=== PATIENT | male | born 2005 | race Caucasian/White ===

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

== ENCOUNTER → 2023-02-23 | Outpatient (CLI) | payer BC, MEDICAID, SELFPAY ==
[2023-02-23 18:31] LABS: Absolute Lymphocyte Count 2.47 X10^3/uL (0.83-4.51); Absolute Neutrophil Count 3.3 X10^3/uL (2.0-7.7); Basophil# 0.07 X10^3/uL; Eosinophil# 0.34 X10^3/uL; Hematocrit 47.6 % (40-54); Hemoglobin 15.5 g/dL (13.0-16.5); Lymphocyte # 2.47 X10^3/ul (0.83-4.51); Lymphocyte % 36.1 % (19-41); Mean Corp Hgb Conc 32.6 g/dL (32-36); Mean Corpuscular Hgb 29.4 pg (27.0-32.0); Mean Corpuscular Volume 90.2 fL (80-94); Mean Platelet Vol. 10.5 fl (6.2-12.0); Monocyte# 0.68 X10^3/uL; Monocyte% 9.9 % (0-10); NRBC Flagged by Analyzer 0 % (0-5); Neutrophil # 3.27 X10^3/uL (2.7-7.7); Neutrophil % 47.9 % (47-70); POSITIVE COUNT YES; RBC Distribution Width CV 12.8 % (11.6-14.6); RBC Distribution Width SD 41.8 fl (35.1-43.9); Red Blood Count 5.28 M/mm3 (4.6-6.2); White Blood Count 6.8 K/mm3 (4.4-11.0)
[2023-02-23 18:50] LABS: ALB/GLOB Ratio 1.3 RATIO (0.9-2.4); AST(SGOT) 14 U/L (15-37); Alanine Aminotransfer ALT/SGPT 23 U/L (16-61); Albumin, Serum 4.4 g/dL (3.2-5.0); Alkaline Phosphatase 110 U/L (45-117); Anion Gap 7 (5-15); BUN 9 mg/dL (7-18); BUN/Creat Ratio 10.5 RATIO (10-20); Calcium,Total 9.4 mg/dL (8.5-10.1); Chloride 107 mmol/L (98-107); Creatinine, Serum 0.86 mg/dL (0.70-1.30); EST Glomerular Filtration Rate 122 mL/min (>60); Est Glom Filt Rate - Afr Amer 147 mL/min (>60); Free T3 3.5 pg/mL (2.18-3.98); Globulin 3.3 g/dL (2.2-4.2); Glucose 80 mg/dL (74-106); Potassium 4.2 mmol/L (3.5-5.1); Protein, Total 7.7 g/dL (6.4-8.2); Sodium Level 142 mmol/L (136-145); T4 Free Direct 0.85 ng/dL (0.76-1.46); Thyroid Stim Hormone (TSH) 3.73 uIU/mL (0.358-3.74)
[2023-02-23 18:58] LABS: Differential Indicated SCAN CRITERIA MET
[2023-02-23 19:01] LABS: Anisocytosis RARE; Macrocytosis RARE; Platelet Estimate ADEQUATE (ADEQ)
[2023-02-25 09:46] LABS: Vitamin D,25 Hydroxy 23.9 ng/mL
== END | disposition home or self-care (01) ==
LOC: LABSPEC 18:18
PROVIDERS: Visit Provider Nurse Practitioner Family
DX: E03.9 Hypothyroidism, unspecified (principal); F41.9 Anxiety disorder, unspecified; R53.82 Chronic fatigue, unspecified; R06.02 Shortness of breath; G25.81 Restless legs syndrome; B60.00 Babesiosis, unspecified; E55.9 Vitamin D deficiency, unspecified
CPT/HCPCS: 80053; 82306; 82627; 84403; 84439; 84443; 84481; 85025; 82626

== ENCOUNTER → 2023-03-01 | Outpatient (CLI) | payer BC, MEDICAID, SELFPAY ==
[2023-03-01 17:07] LABS: Estradiol 23.4 pg/mL
[2023-03-07 00:07] LABS: Estrogen, Total, Serum 66 pg/mL (56-213)
== END | disposition home or self-care (01) ==
LOC: LABSPEC 15:57
PROVIDERS: Referring Provider Nurse Practitioner Family; Visit Provider Nurse Practitioner Family
DX: R53.82 Chronic fatigue, unspecified (principal); E29.1 Testicular hypofunction
CPT/HCPCS: 82533; 82627; 82670; 82672; 84403; 82626

== ENCOUNTER → 2023-09-25 | Outpatient (CLI) | payer BC, MEDICAID, SELFPAY ==
[2023-09-25 12:21] LABS: Absolute Lymphocyte Count 1.65 X10^3/uL (0.83-4.51); Absolute Neutrophil Count 2.9 X10^3/uL (2.0-7.7); Basophil# 0.04 X10^3/uL; Basophil% 0.7 % (0-1); Eosinophil# 0.24 X10^3/uL; Eosinophils% 4.5 % (0-5); Hematocrit 46.5 % (40-54); Hemoglobin 15.5 g/dL (13.0-16.5); Lymphocyte # 1.65 X10^3/ul (0.83-4.51); Lymphocyte % 30.7 % (19-41); Mean Corp Hgb Conc 33.3 g/dL (32-36); Mean Corpuscular Hgb 29.1 pg (27.0-32.0); Mean Corpuscular Volume 87.2 fL (80-94); Mean Platelet Vol. 9.3 fl (6.2-12.0); Monocyte# 0.52 X10^3/uL; Monocyte% 9.7 % (0-10); NRBC Flagged by Analyzer 0 % (0-5); Neutrophil # 2.91 X10^3/uL (2.7-7.7); Neutrophil % 54.2 % (47-70); Platelet Count 300 K/mm3 (150-450); RBC Distribution Width CV 12.4 % (11.6-14.6); RBC Distribution Width SD 39.5 fl (35.1-43.9); Red Blood Count 5.33 M/mm3 (4.6-6.2); White Blood Count 5.4 K/mm3 (4.4-11.0)
[2023-09-25 12:31] LABS: Hemoglobin A1c 4.9 % (3.8-5.6); Vitamin B12 351 pg/mL (211-911); Vitamin D,25 Hydroxy 18.3 ng/mL
[2023-09-25 13:04] LABS: ALB/GLOB Ratio 1.1 RATIO (0.9-2.4); AST(SGOT) 12 U/L (15-37); Alanine Aminotransfer ALT/SGPT 21 U/L (16-61); Alkaline Phosphatase 101 U/L (45-117); Anion Gap 5 (5-15); BUN 12 mg/dL (7-18); BUN/Creat Ratio 12.7 RATIO (10-20); Calcium,Total 9.1 mg/dL (8.5-10.1); Chloride 106 mmol/L (98-107); Cholesterol 159 mg/dL (200); Creatinine, Serum 0.95 mg/dL (0.70-1.30); EST Glomerular Filtration Rate 108 mL/min (>60); Est Glom Filt Rate - Afr Amer 131 mL/min (>60); Free T3 2.7 pg/mL (2.18-3.98); Globulin 3.5 g/dL (2.2-4.2); Glucose 94 mg/dL (74-106); High Density Lipoprotein 32 mg/dL; Potassium 3.9 mmol/L (3.5-5.1); Protein, Total 7.5 g/dL (6.4-8.2); Sodium Level 136 mmol/L (136-145); T4 Free Direct 1.02 ng/dL (0.76-1.46); Thyroid Stim Hormone (TSH) 1.69 uIU/mL (0.358-3.74); Triglycerides 101 mg/dL; Very Low Density Lipoprotein 20 mg/dL (5-40)
[2023-09-26 13:08] LABS: ANTINUCLEAR ANTIBODIES DIRECT Negative (Negative)
[2023-09-28 18:08] LABS: CMV Acute Antibody IgM < 30.0 AU/mL (0.0-29.9); CMV Antibody IgG < 0.60 U/mL (0.00-0.59); EBV Acute VCA IgM < 36.0 U/mL (0.0-35.9); EBV Nuclear Antigen IgG < 18.0 U/mL (0.0-17.9); EBV-VCA IgG < 18.0 U/mL (0.0-17.9); VITAMIN B6 16.2 ug/L (3.4-65.2); Vitamin B1, Thiamine 137.2 nmol/L (66.5-200.0)
== END | disposition home or self-care (01) ==
PROVIDERS: Visit Provider Nurse Practitioner Family
DX: R53.82 Chronic fatigue, unspecified (principal); E29.1 Testicular hypofunction; E03.9 Hypothyroidism, unspecified; F41.9 Anxiety disorder, unspecified; B60.09 Other babesiosis; L90.6 Striae atrophicae; R06.02 Shortness of breath; R10.9 Unspecified abdominal pain; R25.3 Fasciculation; G47.01 Insomnia due to medical condition
CPT/HCPCS: 36415; 80053; 80061; 82306; 82607; 82746; 83036; 84207; 84403; 84425; 84439; 84443; 84481; 85025; 86038; 86225; 86235; 86644; 86645; 86664; 86665

== ENCOUNTER → 2024-01-24 | Outpatient (CLI) | payer BC, SELFPAY ==
[2024-01-24 15:41] LABS: Absolute Lymphocyte Count 1.72 X10^3/uL (0.83-4.51); Absolute Neutrophil Count 3.4 X10^3/uL (2.0-7.7); Basophil# 0.05 X10^3/uL; Basophil% 0.8 % (0-1); Eosinophil# 0.26 X10^3/uL; Eosinophils% 4.3 % (0-5); Hematocrit 48.4 % (40-54); Lymphocyte # 1.72 X10^3/ul (0.83-4.51); Lymphocyte % 28.2 % (19-41); Mean Corp Hgb Conc 33.1 g/dL (32-36); Mean Corpuscular Hgb 29.8 pg (27.0-32.0); Mean Corpuscular Volume 90.1 fL (80-94); Mean Platelet Vol. 10.7 fl (6.2-12.0); Monocyte# 0.64 X10^3/uL; Monocyte% 10.5 % (0-10); NRBC Flagged by Analyzer 0 % (0-5); Neutrophil # 3.42 X10^3/uL (2.7-7.7); Neutrophil % 55.9 % (47-70); Platelet Count 282 K/mm3 (150-450); RBC Distribution Width CV 13.1 % (11.6-14.6); RBC Distribution Width SD 43.3 fl (35.1-43.9); Red Blood Count 5.37 M/mm3 (4.6-6.2); White Blood Count 6.1 K/mm3 (4.4-11.0)
[2024-01-24 15:51] LABS: T3 Total - Triiodothyronine 1.13 ng/mL (0.6-1.81); Vitamin D,25 Hydroxy 20.7 ng/mL
[2024-01-24 15:57] LABS: ALB/GLOB Ratio 1.4 RATIO (0.9-2.4); AST(SGOT) 20 U/L (15-37); Alanine Aminotransfer ALT/SGPT 23 U/L (16-61); Albumin, Serum 4.2 g/dL (3.2-5.0); Alkaline Phosphatase 96 U/L (45-117); Anion Gap 4 (5-15); BUN 7 mg/dL (7-18); BUN/Creat Ratio 6.7 RATIO (10-20); Calcium,Total 9.3 mg/dL (8.5-10.1); Chloride 105 mmol/L (98-107); Creatinine, Serum 1.05 mg/dL (0.70-1.30); EST Glomerular Filtration Rate 95 mL/min (>60); Est Glom Filt Rate - Afr Amer 115 mL/min (>60); Glucose 81 mg/dL (74-106); Potassium 4.2 mmol/L (3.5-5.1); Protein, Total 7.2 g/dL (6.4-8.2); Sodium Level 137 mmol/L (136-145); T4 Free Direct 0.76 ng/dL (0.76-1.46)
[2024-01-26 08:14] LABS: Haptoglobin 139 mg/dL (17-317)
== END | disposition home or self-care (01) ==
PROVIDERS: Referring Provider Nurse Practitioner Family; Visit Provider Nurse Practitioner Family
DX: E03.9 Hypothyroidism, unspecified (principal); F41.9 Anxiety disorder, unspecified; R53.82 Chronic fatigue, unspecified; R06.02 Shortness of breath; G25.81 Restless legs syndrome; B60.00 Babesiosis, unspecified; E55.9 Vitamin D deficiency, unspecified
CPT/HCPCS: 80053; 82306; 82627; 83010; 84403; 84439; 84443; 84480; 85025; 82626

== ENCOUNTER → 2024-05-25 | Outpatient (CLI) | payer OTHER, SELFPAY ==
[2024-05-25 15:54] LABS: Absolute Lymphocyte Count 2.07 X10^3/uL (0.83-4.51); Basophil# 0.05 X10^3/uL; Basophil% 0.5 % (0-1); Eosinophil# 0.21 X10^3/uL; Eosinophils% 2.1 % (0-5); Hematocrit 45.3 % (40-54); Hemoglobin 14.8 g/dL (13.0-16.5); Lymphocyte # 2.07 X10^3/ul (0.83-4.51); Lymphocyte % 20.8 % (19-41); Mean Corp Hgb Conc 32.7 g/dL (32-36); Mean Corpuscular Hgb 29.5 pg (27.0-32.0); Mean Corpuscular Volume 90.4 fL (80-94); Mean Platelet Vol. 9.6 fl (6.2-12.0); Monocyte# 0.57 X10^3/uL; Monocyte% 5.7 % (0-10); NRBC Flagged by Analyzer 0 % (0-5); Neutrophil % 70.5 % (47-70); Platelet Count 365 K/mm3 (150-450); RBC Distribution Width CV 12.8 % (11.6-14.6); RBC Distribution Width SD 41.8 fl (35.1-43.9); Red Blood Count 5.01 M/mm3 (4.6-6.2); White Blood Count 9.9 K/mm3 (4.4-11.0)
[2024-05-25 16:13] LABS: T3 Total - Triiodothyronine 1.13 ng/mL (0.6-1.81); Vitamin D,25 Hydroxy 35.3 ng/mL
[2024-05-25 19:37] LABS: ALB/GLOB Ratio 1.3 RATIO (0.9-2.4); AST(SGOT) 20 U/L (15-37); Alanine Aminotransfer ALT/SGPT 27 U/L (16-61); Albumin, Serum 4.2 g/dL (3.2-5.0); Alkaline Phosphatase 111 U/L (45-117); Anion Gap 6 (5-15); BUN 11 mg/dL (7-18); BUN/Creat Ratio 11.7 RATIO (10-20); Calcium,Total 9.4 mg/dL (8.5-10.1); Chloride 104 mmol/L (98-107); Creatinine, Serum 0.94 mg/dL (0.70-1.30); EST Glomerular Filtration Rate 108 mL/min (>60); Est Glom Filt Rate - Afr Amer 131 mL/min (>60); Ferritin 110 ng/mL (26-388); Globulin 3.3 g/dL (2.2-4.2); Glucose 83 mg/dL (74-106); Iron 42 ug/dL (65-175); Potassium 3.8 mmol/L (3.5-5.1); Protein, Total 7.5 g/dL (6.4-8.2); Sodium Level 139 mmol/L (136-145); T4 Total, Thyroxin 5.5 ug/dL (4.5-12.1)
== END | disposition home or self-care (01) ==
PROVIDERS: Referring Provider Nurse Practitioner Family; Visit Provider Nurse Practitioner Family
DX: R53.82 Chronic fatigue, unspecified (principal); E29.1 Testicular hypofunction; E03.9 Hypothyroidism, unspecified; F41.9 Anxiety disorder, unspecified; B60.09 Other babesiosis; L90.6 Striae atrophicae; R06.02 Shortness of breath; R10.9 Unspecified abdominal pain; R25.3 Fasciculation; G47.01 Insomnia due to medical condition
CPT/HCPCS: 80053; 82306; 82627; 82728; 83036; 83540; 84403; 84436; 84443; 84480; 85025; 82626